=== PATIENT | female | born 1975 | race Caucasian/White ===

== ENCOUNTER 2018-03-10 06:00 | Outpatient (CLI) | payer BC ==
[~2018-03-10] VITALS: Ht 152.4 cm; Wt 77.3 kg
--- NOTE | ~2018-03-10 | HEMODYNAMI ---
PATIENT:MONSE DOTSON MEDICAL RECORD: [id number] : 77 LOCATION:[facility] ADMISSION DATE: 03/10/18 Generatedon:03/10/20188:13 Patient name: MONSE DOTSON Patient #: [id number] SSN: DO B: 1975 Date of study: 03/10/2018 Page: Of Hemodynamic Procedure Report Patient Data Patient Demographics Procedure consent was obtained First Name: MONSE Gender: Female Last Name: MAURI : 1975 [facility] Initial: STEVEN Age: 42 year(s) Patient #: [id number] Race: Unknown Additional ID: [id number] Contact details Address: [address] [place] [address] [facility] State: [place] City: [place] Zip code: [address] Past Medical History Allergies: No known allergies Admission Admission Data Admission Date: 03/10/2018 Admission Time: 6:00 Admit Source: Other Lab Results Lab Result Date: 03/10/2018 Lab Result Time: 6:35 Biochemistry Name Units Result Min Max BUN mg/dl 13 --(--*-)-- 7 18 Creatinine mg/dl 0.8 --(-*--)-- 0.6 1.3 CBC Name Units Result Min Max Hematocrit % 38.9 *-(----)-- 42 54 Hemoglobin g/dl 13.3 -*(----)-- 13.5 17.5 Procedure Procedure Types Cath Procedure Diagnostic Procedure LHC LHC w/Coronaries Procedure Description Procedure Date Procedure Date: 03/10/2018 Procedure Start Time: 8:01 Procedure End Time: 8:12 Procedure Staff Name Function Maximo Sterling MD Performing Physician Dieter Du RT Monitor Mora Raymundo RT Scrub Edwin Reynaga RN Nurse Procedure Data Cath Procedure Fluoroscopy Diagnostic fluoroscopy Total fluoroscopy Time: 1.8 time: 1.8 min min Diagnostic fluoroscopy Total fluoroscopy dose: 201 dose: 201 mGy mGy Contrast Material Contrast Material Type Amount (ml) Isovue 300 37 Entry Location Entry Primary Successful Side Size Upsize Upsize Entry Closure Blanco ccessful Closure Location (Fr) 1 (Fr) 2 (Fr) Remarks Device Remarks Radial Right 6 Fr Mechanical artery Short Compression Estimated blood loss: 5 ml Diagnostic catheters Device Type Used For End Catheter Placement DIAGNOSTIC Benjamin 110cm Procedure 5Fr catheter ([id number]) Procedure Complications No complications Procedure Medications Medication Administration Route Dosage 0.9% NaCl I.V. 100 ml/hr Oxygen etCO2 Nasal cannula 2 l/min Heparin Flush Bag added to field 2 bags (1000units/500ml NS) Lidocaine 2% added to field 20 Radial Cocktail added to field (Verapomil 2mg/Nitro 400mcg/Heparin 1500units) Versed I.V. 1 mg Fentanyl I.V. 50 mcg Radial Cocktail I.A. (Verapomil 2mg/Nitro 400mcg/Heparin 1500units) Hemodynamics Rest HGB: 13.3 (g/dl) Heart Rate: 69 (bpm) Pressure Samples Time Site Value (mmHg) Purpose Heart Use Rate(bpm) 8:05 LV 123/-1,4 EDP 85 Gradients Valve Time Site Site Mean SEP/DFP Peak To Heart Use 1 2 (mmHg) (sec/min) Peak Rate (mmHg) (bpm) Aortic 8:05 LV AO 89 Snapshots Pre Cath Intra NCS Post Cath Vital Signs Time Heart Resp SPO2 etCO2 NIBP Rhythm Pain Sedation Rate (ipm) (%) (mmHg) (mmHg) Status Level (bpm) 7:55:48 66 19 100 0 116/62(90) NSR 0 (11) 10(A) , No pain 8:00:26 79 15 95 38.3 122/68(91) NSR 0 (11) 10(A) , No pain 8:05:05 84 11 95 36.8 113/64(90) NSR 0 (11) 10(A) , No pain 8:09:42 87 19 97 31.5 116/66(90) NSR 0 (11) 10(A) , No pain Medications Time Medication Route Dose Verified Delivered Reason Notes Ef fectiveness by by 7:55:32 0.9% NaCl I.V. 100 Edwin Edwin Per ml/hr Juhi Reynaga physician RN RN 7:55:43 Oxygen etCO2 2 Edwin Edwin Per Nasal l/min Juhi Reynaga physician cannula RN RN 7:56:00 Heparin Flush added 2 Edwin Edwin used for Bag to bags Juhi Reynaga procedure (1000units/500ml field RN RN NS) 7:56:16 Lidocaine 2% added 20ml Edwin Edwin for local to vial Lorallan Reynaga anesthetic field RN RN 7:57:01 Radial Cocktail added Edwin Edwin used for (Verapomil to Lorigan Juhi procedure 2mg/Nitro field RN RN 400mcg/Heparin 1500units) 7:59:00 Versed I.V. 1 mg Edwin Edwin for sedation Juhi Reynaga RN RN 7:59:15 Fentanyl I.V. 50 Edwin Edwin for sedation mcg Juhi Reynaga RN RN 8:03:45 Radial Cocktail I.A. Edwin Maximo for (Verapomil Juhi Sterling MD vasodilation 2mg/Nitro RN 400mcg/Heparin 1500units) Procedure Log Time Note 7:31:22 Informed consent obtained and on chart 7:31:26 Admit Source: Other 7::50 Diagnostic Cath status Elective 7:31:52 Time tracking: Regular hours (M-F 7:00 - 5:00) 7:31:56 Plan of Care:Hemodynamics will remain stable., Cardiac rhythm will remain stable., Comfort level will be maintained., Respiratory function will remain adequate., Patient/ family verbilizes understanding of procedure., Procedure tolerated without complication., Recovers from procedure without complications.. 7:39:25 Lab Result : Creatinine 0.8 mg/dl 7:39:25 Lab Result : BUN 13 mg/dl 7:39:25 Lab Result : Hemoglobin 13.3 g/dl 7:39:25 Lab Result : Hematocrit 38.9 % 7:39:28 Lab results completed and on chart. 7:39:49 HCG/Urine : completed and on chart, negative 7:43:31 Edwin Reynaga RN sent for patient. Start room use. 7:44:50 Patient received from Pre/Post Procedure Room to CCL 1 Alert and oriented. Tansferred to table in Supine position. 7:44:51 Warm blankets applied, and renetta hugger turned on for patient comfort. 7:44:52 Correct patient and procedure confirmed by team. 7:47:45 ECG and BP/O2 sat monitors applied to patient. 7:48:32 H&P Date Dictated: 03/09/2018 Within 30 days and on chart., H&P Addendum completed by physician on day of procedure. (MUST COMPLETE FOR ALL OUTPATIENTS). 7:48:34 Pre-procedure instructions explained to patient. 7:48:34 Pre-op teaching completed and patient verbalized understanding. 7:48:35 Family in waiting room. 7:48:37 Patient NPO since Midnight. 7:48:43 Patient allergic to No known allergies 7:48:45 Is the patient allergic to Iodine/contrast media? No. 7:48:46 Is patient on blood thinner?Yes 7:48:48 ACC The patient was administered the following blood thiners within the last 24 hours: ACCPlavix 7:48:50 Patient diabetic? No. 7:48:54 Previous problem with sedation/anesthesia? No ? 7:48:54 Snore? No 7:48:56 Sleep apnea? No 7:48:57 Deviated septum? No 7:48:57 Opens mouth fully? Yes 7:48:58 Sticks out tongue? Yes 7:49:00 Airway obstruction? No ? 7:49:01 Dentures? No ? 7:49:05 Modified Yuriy's test Ulnar < 7 seconds 7:49:12 Patient pain scale 0/10 ?. 7:49:22 IV patent on arrival in left forearm with 0.9% NaCl at O. 7:49:27 Right Radial & Right Groin area was prepped with chlora-prep and draped in sterile fashion 7:49:28 Alarms reviewed by R. N. 7:49:29 Sharps counted by scrub and verified by R.N. 7:49:36 Use device set Radial Dx or PCI 7:49:53 ACIST Syringe (07887) opened to sterile field. 7:49:54 Medline Cath Pack ([id number]) opened to sterile field. 7:49:55 Bag Decanter () opened to sterile field. 7:49:57 Tegaderm 4 x 4 (1626W) opened to sterile field. 7:49:57 MBrace Wrist Support ([id number]) opened to sterile field. 7:49:59 ACIST Hand Control (70949) opened to sterile field. 7:50:00 ACIST Manifold (12937) opened to sterile field. 7:50:09 DIAGNOSTIC WIRE .035 260cm J wire ([id number]) opened to sterile field. 7:50:24 SHEATH 6Fr Prelude Radial ([id number]) opened to sterile field. 7:54:57 Vital chart was started 7:55:01 Baseline sample Acquired. 7:55:05 Rhythm: sinus rhythm 7:55:07 Full Disclosure recording started 7:55:32 0.9% NaCl 100 ml/hr I.V. was administered by Edwin Reynaga RN; Per physician; 7:55:39 Physician arrived 7:55:40 --------ALL STOP TIME OUT------ 7:55:40 Final Timeout: patient, procedure, and site verified with staff and physician. All members of the team are in agreement. 7:55:42 Right Radial & Right Groin site verified by team. 7:55:43 Oxygen 2 l/min etCO2 Nasal cannula was administered by Edwin Reynaga RN; Per physician; 7:55:44 Physical assessment completed. ASA score P 2 - A patient with mild systemic disease as per Maximo Sterling MD. 7:55:47 Sedation plan: IV Moderate Sedation Medication:Versed, Fentanyl 7:56:00 Heparin Flush Bag (1000units/500ml NS) 2 bags added to field was administered by Edwin Reynaga RN; used for procedure; 7:56:16 Lidocaine 2% 20ml vial added to field was administered by Edwin Reynaga RN; for local anesthetic; 7:57:01 Radial Cocktail (Verapomil 2mg/Nitro 400mcg/Heparin 1500units) added to field was administered by Edwin Reynaga RN; used for procedure; 7:59:00 Versed 1 mg I.V. was administered by Edwin Reynaga RN; for sedation; 7:59:15 Fentanyl 50 mcg I.V. was administered by Edwin Reynaga RN; for sedation; 8:00:24 Zero performed for pressure channel P1 8:01:07 Procedure started. 8:01:11 Local anesthetic to right radial artery with Lidocaine 2% by Maximo Sterling MD.INITIAL ACCESS ONLY 8:01:23 A 6 Fr Short sheath was inserted into the Right Radial artery 8:03:22 A DIAGNOSTIC Benjamin 110cm 5Fr catheter ([id number]) was advanced over the wire and used for Procedure. 8:03:45 Radial Cocktail (Verapomil 2mg/Nitro 400mcg/Heparin 1500units) I.A. was administered by Maximo Sterling MD; for vasodilation; 8:04:31 Injector settings: Ml/sec: 12, Volume: 8, 8:04:33 LV hemodynamics recorded. 8:05:12 LV gram done using CASILLAS 8:05:27 EF : 60 % 8:05:46 RCA angiography performed. 8:06:52 LCA angiography performed. 8:08:11 Catheter removed. 8:08:15 TR BAND Standard ([id number]) opened to sterile field. 8:08:24 Sheath removed intact; hemostasis achieved with Mechanical Compression to the Right Radial artery. 8:08:25 Procedure ended.(Physican Out) 8:11:28 Fluoroscopy time 01.80 minutes. 8:11:31 Fluoroscopy dose: 201 mGy 8:11:31 Flurop Dose total: 201 8:11:34 Contrast amount:Isovue 300 37ml. 8:11:42 Sharps counted by scrub and verified by R.N. 8:11:44 TR band inflated with 12cc of air. 8:11:45 Insertion/operative site no bleeding no hematoma. 8:11:52 Post right radial artery:stable, soft, clean and dry 8:11:54 Post Procedure Pulses reassessed and unchanged 8:11:58 Post-procedure physical assessment completed. ASA score P 2 - A patient with mild systemic disease as per Maximo Sterling MD. 8:12:01 Post procedure rhythm: unchanged. 8:12:08 Estimated blood loss: 5 ml 8:12:09 Post procedure instruction explained to patient.Patient verbalizes understanding. 8:12:09 Patient needs reinforcement of post procedure teaching. 8:12:36 Procedure and supply charges have been captured, reviewed, submitted and are correct. 8:12:39 Procedure Complication : No complications 8:12:41 Vital chart was stopped 8:12:41 See physician's report for complete and final results. 8:12:42 Report given to Pre/Post Procedure Room. 8:12:45 Patient transfered to Pre/Post Procedure Room with Stretcher. 8:12:49 Procedure ended. 8:12:49 Full Disclosure recording stopped 8:12:53 End room use (Document Last) Device Usage Item Name Manufacture Quantity Catalog Number Hospital Part Current M inimal Lot# / Charge Number Stock Stock Serial# Code ACIST Syringe Acist 1 37258 [id number] 257222 340233 2 0 (54510) [employer] Medline Cath Cardinal 1 [id number] 105030 01691 146403 5 Pack Health ([id number]) Bag Decanter Microtek 1 2001S 908493 22346 967930 5 (2001S) Medical Inc. Tegaderm 4 x 4 3M 1 1626W 437390 714416 807400 5 (1626W) MBrace Wrist Advanced 1 140-0250-00 768889 77007 321919 5 Support Vascular ([id number]) Dynamics ACIST Hand Acist 1 52860 669903 698390 355108 5 Control (70083) [employer] ACIST Manifold Acist 1 90212 107189 521814 213339 5 (00737) [employer] DIAGNOSTIC WIRE St Ron 1 944193 175679 118744 055187 3 0 .035 260cm J wire (151419) SHEATH 6Fr Merit 1 [id number] 200670 784533 971599 5 Prelude Radial Medical ([id number]) DIAGNOSTIC Terumo 1 06-2410 377344 218400 364505 5 Benjamin 110cm 5Fr catheter (148306) TR BAND Terumo 1 [id number] 774210 936472 942932 4 0 Standard ([id number]) Signature Audit [place] Stage Time Signature Unsigned Intra-Procedure 03/10/2018 Dieter Du 8:13:21 AM RT(R) Signatures Monitor : Dieter Du RT Signature : Date : Time : [facility] [address] [facility] [place] [address]
[2018-03-10] MEDS ORDERED: PROPAFENONE HC225 MG PO (06:14)
[2018-03-10 06:38] VITALS: BP 117/60; Ht 152.4 cm; Wt 77.3 kg
[2018-03-10 06:47] LABS: CALC OSMOLALITY 275 mosm/kg (275-300); CALCIUM 8.3 mg/dL (8.5-10.1); CARBON DIOXIDE 22.5 mmol/L (21.0-32.0); CHLORIDE - SERUM 105 mmol/L (98-107); CREATININE - SERUM 0.8 mg/dL (0.6-1.3); GLUCOSE 90 mg/dL (74-106); POTASSIUM - SERUM 3.5 mmol/L (3.5-5.1); SODIUM 138 mmol/L (136-145); UREA NITROGEN 13 mg/dL (7-18); eGFR NON AFRICAN AMERICAN 84 mL/min (90-120)
[2018-03-10 06:49] LABS: BASOPHILS 0.3 % (0-2); EOSINOPHILS 3.9 % (0-7); HEMATOCRIT 38.9 % (36.0-48.0); HEMOGLOBIN 13.3 g/dL (12-16); IMMATURE GRANULOCYTES 0.2 % (0-5); LYMPHOCYTES 20.8 % (15-50); MCH 31.6 pg (26.0-34.0); MCHC 34.2 g/dL (31.0-37.0); MCV 92.4 fL (80.0-100.0); MEAN PLATELET VOLUME 9.6 fL (7.4-10.4); MONOCYTES 9.4 % (2-11); NEUTROPHILS 65.4 % (40-80); PLATELET COUNT 244 10x3/uL (130-400); RBC 4.21 10x6/uL (4.00-5.40); RDW 12.9 % (11.5-14.5); WBC 6.6 10x3/uL (4.8-10.8)
[2018-03-10 06:52] LABS: HCG SERUM NEGATIVE (NEGATIVE)
[2018-03-10 10:38] LABS: ALBUMIN 3.5 g/dL (3.4-5.0); ALKALINE PHOSPHATASE 55 U/L (46-116); ALT (SGPT) 22 U/L (10-68); BILIRUBIN - TOTAL 0.72 mg/dL (0.2-1.3); PROTEIN - SERUM 6.9 g/dL (6.4-8.2); T4 THYROXIN - FREE 1.12 ng/dL (0.76-1.46); THYROID STIMULATING HORMONE 1.91 uIU/mL (0.36-3.74)
== END 2018-03-10 14:00 | disposition home or self-care (01) ==
LOC: D.CATH 06:00
PROVIDERS: Internal Medicine Cardiovascular Disease
DX: I47.2 Ventricular tachycardia (principal); Z01.812 Encounter for preprocedural laboratory examination; Z87.891 Personal history of nicotine dependence; R07.9 Chest pain, unspecified